=== PATIENT | male | born 1960 | race Caucasian/White ===

== ENCOUNTER 2016-04-25 01:50 | Inpatient (IN) | payer OTHER ==
[~2016-04-25] VITALS: Ht 167.6 cm; Wt 46.6 kg
[2016-04-25] MEDS ORDERED: DILAUDID 1 MG/ML AMP ONE (03:13)
[2016-04-25] MEDS ORDERED: ONDANSETRON 4 MG VIAL ONE (03:14)
[2016-04-25] MEDS ORDERED: PIPER/TAZO 3.375 GM PYXIS ONE (05:33)
[2016-04-25] MEDS ORDERED: SODIUM CHLORIDE 0.9% 1,000 ML ONE ×2 (05:33→06:48)
[2016-04-25] MEDS ORDERED: SODIUM CHLORIDE 0.9% 100 ML IV ONE (05:33)
[2016-04-25] MEDS ORDERED: HEPARIN 5,000 UNITS/ML **DVT/PE IV PRN (05:45)
[2016-04-25] MEDS ORDERED: HEPARIN 20,000 UNIT/500 ML *DVT/PE IV SCH (05:45)
[2016-04-25] MEDS ORDERED: DEXTROSE 5% IV SCH (05:50)
[2016-04-25] MEDS ORDERED: HEPARIN SODIUM IV SCH (05:50)
[2016-04-25] MEDS ORDERED: PHARMACY TO DOSE XX SCH (07:55)
[2016-04-25] MEDS ORDERED: SODIUM CHLORIDE 0.9% 1,000 ML IV SCH (08:10)
[2016-04-25] MEDS ORDERED: ONDANSETRON 4 MG VIAL IV PRN (08:10)
[2016-04-25] MEDS ORDERED: MAG HYDROX 30 ML UDC PO PRN (08:10)
[2016-04-25] MEDS ORDERED: BISACODYL EC 5 MG TAB PO PRN (08:10)
[2016-04-25] MEDS ORDERED: SALINE FLUSH 10 ML FLUSH PRN (08:10)
[2016-04-25] MEDS ORDERED: BISACODYL 10 MG SUPP RECTAL PRN (08:10)
[2016-04-25] MEDS ORDERED: ACETAMINOPHEN 325 MG TAB PO PRN (08:10)
[2016-04-25] MEDS ORDERED: ALU/MAG/SIM 30 ML UDC PO PRN (08:10)
[2016-04-25] MEDS ORDERED: DUONEB INH PRN (08:10)
[2016-04-25] MEDS ORDERED: ADD HEIGHT XX SCH (08:27)
[2016-04-25] MEDS ORDERED: [UNRECOGNIZED DRUG - OTHER] XX SCH (08:27)
[2016-04-25 09:00] VITALS: BP_SYST 133; BP_SYST 136; RESP 18; TEMP 97.6
[2016-04-25 09:01] VITALS: BMI 16.6
[2016-04-25] MEDS: PANTOPRAZOLE 40 MG VIAL IV SCH (09:05)
[2016-04-25] MEDS: PIPERACIL/TAZO 3.375GM/50ML 50 ML IV SCH ×2 (09:21→17:32)
[2016-04-25] MEDS: MORPHINE 2 MG/ML SYR IV PRN ×3 (10:49→19:53)
[2016-04-25 10:53] VITALS: RESP 18
[2016-04-25 10:56] VITALS: Ht 167.6 cm; Wt 46.6 kg
[2016-04-25 11:15] VITALS: BP_SYST 127; RESP 18; TEMP 98.2
[2016-04-25 15:46] VITALS: BP_SYST 121; RESP 18; TEMP 97.7
[2016-04-25 19:24] VITALS: BP_SYST 112; RESP 16; TEMP 97.3
[2016-04-25] MEDS: SALINE FLUSH 10 ML FLUSH SCH (19:53)
[2016-04-25 23:35] VITALS: BP_SYST 115; RESP 20; TEMP 97.7
[2016-04-26] MEDS: MORPHINE 2 MG/ML SYR IV PRN ×5 (00:12→17:28)
[2016-04-26] MEDS: PIPERACIL/TAZO 3.375GM/50ML 50 ML IV SCH ×3 (00:14→12:22)
[2016-04-26 03:34] VITALS: BP_SYST 122; RESP 18; TEMP 97.6
[2016-04-26] MEDS ORDERED: MISSING DOSE XX ONE (03:45)
[2016-04-26] MEDS ORDERED: hePARIN in D5W (40 UNITS/ML) 500 ML IV SCH (03:55)
[2016-04-26] MEDS ORDERED: SODIUM CHLORIDE 0.9% FLUSH BAG 500 ML IV SCH (06:00)
[2016-04-26 07:24] VITALS: BP_SYST 125; RESP 18; TEMP 97.5
[2016-04-26] MEDS: PANTOPRAZOLE 40 MG VIAL IV SCH (08:52)
[2016-04-26] MEDS: SALINE FLUSH 10 ML FLUSH SCH (08:53)
[2016-04-26] MEDS ORDERED: ONDANSETRON ODT 4 MG TAB PO PRN (09:55)
[2016-04-26] MEDS: DILAUDID 1 MG/ML AMP IV PRN ×2 (10:39→15:11)
[2016-04-26 11:49] VITALS: BP_SYST 115; RESP 16; TEMP 98.4
[2016-04-26 16:12] VITALS: BP_SYST 152; RESP 18; TEMP 97.6
[2016-04-26 17:40] VITALS: BP_SYST 152; RESP 18; TEMP 97.6
== END 2016-04-26 18:18 | disposition home or self-care (01) | DRG 442 ==
LOC: ENRESERVTM → ENRESERVDT → ENRESERV → ER 01:50 → ENPENDDIS 06:14 → EMR 06:14 → 4THW 07:46
PROVIDERS: ADMIT Family Medicine Addiction Medicine; ATTEND Family Medicine Addiction Medicine
CPT/HCPCS: 36415; 74022; 80053; 83605; 83690; 85025; 85610; 85730; 87040; 93306; 94799; 96361; 96365; 96375; 99223; 99239

== ENCOUNTER 2016-05-11 23:36 | Observation (INO) | payer OTHER ==
[~2016-05-11] VITALS: Ht 167.6 cm; Wt 47.8 kg
[2016-05-11] MEDS ORDERED: OPTIRAY 350 100 ML VIAL HMH IV ONE (23:38)
[2016-05-12] MEDS ORDERED: DILAUDID 1 MG/ML AMP ONE (01:33)
[2016-05-12] MEDS ORDERED: ONDANSETRON 4 MG VIAL ONE (01:33)
[2016-05-12] MEDS ORDERED: SODIUM CHLORIDE 0.9% 500 ML IV ONE (01:34)
[2016-05-12] MEDS ORDERED: SODIUM CHLORIDE 0.9% 1,000 ML IV SCH (03:00)
[2016-05-12] MEDS ORDERED: ONDANSETRON 4 MG VIAL IV PRN (03:00)
[2016-05-12] MEDS ORDERED: SALINE FLUSH 10 ML FLUSH PRN (03:00)
[2016-05-12] MEDS ORDERED: PHARMACY TO DOSE LEVAQUIN IV SCH (03:00)
[2016-05-12 04:10] VITALS: BMI 17.0
[2016-05-12] MEDS ORDERED: LEVOFLOXACIN 750 MG/150 ML 150 ML IV SCH (04:15)
[2016-05-12] MEDS: METRONIDAZOLE 500MG/100ML 100 ML IV SCH ×2 (04:28→11:07)
[2016-05-12 04:30] VITALS: BP_SYST 120; RESP 18; TEMP 97.4
[2016-05-12 04:50] VITALS: RESP 18
[2016-05-12] MEDS: DILAUDID 1 MG/ML AMP IV PRN ×3 (05:22→13:47)
[2016-05-12] MEDS ORDERED: SODIUM CHLORIDE 0.9% FLUSH BAG 500 ML IV SCH (06:00)
[2016-05-12] MEDS ORDERED: SALINE FLUSH 10 ML FLUSH SCH (08:00)
[2016-05-12 08:17] VITALS: BP_SYST 114; RESP 18; TEMP 97.6
[2016-05-12] MEDS ORDERED: CITALOPRAM 20 MG TAB PO SCH (09:00)
[2016-05-12 10:13] VITALS: Ht 167.6 cm; Wt 47.8 kg
[2016-05-12 12:21] VITALS: BP_SYST 127; RESP 18; TEMP 98.9
[2016-05-12 14:22] VITALS: BP_SYST 127; RESP 18; TEMP 98.9
[2016-05-12 14:47] VITALS: RESP 18
== END 2016-05-12 13:27 | disposition home or self-care (01) ==
LOC: ENRESERVDT → ENRESERVTM → ER 23:36 → ENPENDDIS 23:37 → EMR 23:37 → 4NT 05-12 04:10
PROVIDERS: ADMIT Internal Medicine; ATTEND Internal Medicine
DX: K55.069 Acute infarction of intestine, part and extent unspecified (principal); I81 Portal vein thrombosis; J44.9 Chronic obstructive pulmonary disease, unspecified; K58.9 Irritable bowel syndrome, unspecified; R63.4 Abnormal weight loss; Z68.1 Body mass index [BMI] 19.9 or less, adult; D68.59 Other primary thrombophilia; D72.829 Elevated white blood cell count, unspecified; K76.9 Liver disease, unspecified; Z87.891 Personal history of nicotine dependence
CPT/HCPCS: 36415; 74174; 80053; 81003; 83605; 83690; 85025; 87040; 87088; 87493; 94799; 96374; 96375; 99219